=== PATIENT | male | born 1995 | race African-American/Black ===

== ENCOUNTER 2018-07-30 11:21 | Emergency (ER) | payer OTHER ==
[~2018-07-30] VITALS: Ht 190.5 cm; Wt 115.9 kg
[2018-07-30] MEDS ORDERED: KETOROLAC 60 MG/2 ML VIAL (J1885) IM ONE (12:00)
--- NOTE | 2018-07-30 12:54 | REP ---
Clinical: Trauma. Pain. Technique: Three AP and lateral views of the sacrum and coccyx. Findings: Bilateral sacral cecal joints appear symmetric and normal. The sacrum and coccyx appear intact without obvious acute fracture or subluxation. Impression: No obvious acute fracture or subluxation. Electronically Signed by Chaz Hinojosa MD 07/30/2018 12:45 P
[2018-07-30 12:56] VITALS: BP 121/63
[2018-07-30] MEDS ORDERED: MOBI4TAB PO (13:00)
[2018-07-30] MEDS ORDERED: CYCL10TA PO (13:00)
== END 2018-07-30 13:14 | disposition home or self-care (01) ==
LOC: M ED 11:21
DX: M54.5 Low back pain (principal); Z87.81 Personal history of (healed) traumatic fracture
CPT/HCPCS: 72220; 96372; 99284; J1885

== ENCOUNTER 2018-09-06 06:58 | Emergency (ER) | payer OTHER ==
[~2018-09-06] VITALS: Ht 188 cm; Wt 121.1 kg
[2018-09-06 06:58] VITALS: BP 138/72
[~2018-09-06 06:58] MED LIST: CYCL10TA PO; MOBI4TAB PO
[2018-09-06] MEDS ORDERED: NAPROXEN 250 MG TAB PO ONE (07:15)
[2018-09-06] MEDS ORDERED: AUGMENTIN 875 MG TAB PO ONE (07:15)
[2018-09-06] MEDS ORDERED: NAPR-837 PO (07:15)
[2018-09-06] MEDS ORDERED: GENT0.3O15 OD (07:15)
[2018-09-06] MEDS ORDERED: GENTAMICIN 0.3% OPHTH SOL 5 ML BTL OD ONE (07:15)
[2018-09-06] MEDS ORDERED: AUGM875T28 PO (07:15)
== END 2018-09-06 07:38 | disposition home or self-care (01) ==
LOC: M ED 06:58
DX: H02.843 Edema of right eye, unspecified eyelid (principal); H00.013 Hordeolum externum right eye, unspecified eyelid

== ENCOUNTER 2018-12-23 11:08 | Emergency (ER) | payer OTHER ==
[~2018-12-23] VITALS: Ht 190.5 cm; Wt 115.9 kg
[~2018-12-23 11:08] MED LIST changes: +AUGM875T28 PO; +GENT0.3O15 OD; +NAPR-837 PO
[2018-12-23] MEDS ORDERED: TETRACAINE 0.5% OPHTH SOLN 4ML OD ONE (12:00)
[2018-12-23] MEDS ORDERED: IBUPROFEN 800 MG TAB PO ONE (12:00)
[2018-12-23] MEDS ORDERED: FLUORESCEIN OPHTH 1 MG STRIP OD ONE (12:00)
[2018-12-23] MEDS ORDERED: POLYSOL OD (12:37)
[2018-12-23 12:43] VITALS: BP 126/59
== END 2018-12-23 13:20 | disposition home or self-care (01) ==
LOC: M ED 11:08
DX: H10.31 Unspecified acute conjunctivitis, right eye (principal); F17.210 Nicotine dependence, cigarettes, uncomplicated